=== PATIENT | male | born 1950 | race Caucasian/White ===

== ENCOUNTER 2018-03-01 07:29 | Outpatient (CLI) | payer MEDICARE, BC ==
--- NOTE | 2018-03-01 11:22 | PET ---
PET CT: HISTORY: 67-year-old male with colon cancer. Status post last chemotherapy on 02/19/18. Exam requested for res taging. TECHNIQUE: PET scanning with CT attenuation correction was performed from the base of the brain through the prox imal thighs following the intravenous administration of 11.2 mCi F18-FDG in the left antecubital mera a. Imaging was performed after an uptake interval of 48 minutes. COMPARISON: PET CT dated 01/17/17. CORRELATION: CT chest, abdomen, and pelvis dated 11/21/17 from [facility], [place], [place]. FINDINGS: There is diffusely increased osseous uptake in the axial and proximal peripheral skeleton consistent with bone marrow stimulation. No paulino hypermetabolism is seen in the neck, chest, axilla, abdomen, pelvis, or inguinal regions. No hypermetabolic pulmonary nodules, liver, or adrenal lesions are seen. There is physiologic activity in the GI and tracts, and the visualized portions of the brain. The CT scan used for attenuation correction demonstrates no evidence of pleural effusions or ascites. The 1.7 cm right adrenal adenoma is stable. There are changes of right hepatectomy and right hemicol ectomy. IMPRESSION: No evidence of metastatic disease. POS: [facility]
== END 2018-03-01 07:30 | disposition home or self-care (01) ==
LOC: PET 07:29
PROVIDERS: ATTEND Internal Medicine Hematology & Oncology
DX: C78.7 Secondary malignant neoplasm of liver and intrahepatic bile duct (principal); C18.2 Malignant neoplasm of ascending colon
CPT/HCPCS: 78815; A9552

== ENCOUNTER 2018-05-10 09:36 | Outpatient (CLI) | payer MEDICARE, BC ==
--- NOTE | 2018-05-10 13:54 | PET ---
NUCLEAR MEDICINE FDG PET CT: (Positron Emission Tomography) DATE: 05/10/18 HISTORY: 67-year-old male with colon cancer, C18.2 and C78.7. Restaging. COMPARISON: 03/01/18. TECHNIQUE: IV injection F-18 Fluorodeoxyglucose (FDG) dose: 11.8 mCi PET and attenuation-correction CT performed from skull base to proximal thighs. FINDINGS: SUV (standard uptake value) numbers given are QCLR maximum SUV's: Status post right hepatic lobectomy. Status post right hemicolectomy. There is diffusely increased bone uptake throughout the skeleton, as was the case previously. No evid ence of metastatic disease in the liver. No pathologically FDG-avid lesions in the neck, chest, abdom en, or pelvis. No major interval change. IMPRESSION: 1. diffusely increased bone uptake throughout the skeleton, unchanged. (is the patient on GCSF?) 2. Otherwise no evidence of metastatic disease. ELISEO Morris POS: [facility]
== END 2018-05-10 09:37 | disposition home or self-care (01) ==
LOC: PET 09:36
PROVIDERS: ATTEND Internal Medicine Hematology & Oncology
DX: C18.9 Malignant neoplasm of colon, unspecified (principal); C78.7 Secondary malignant neoplasm of liver and intrahepatic bile duct
CPT/HCPCS: 78815; A9552

== ENCOUNTER 2018-08-23 08:05 | Outpatient (CLI) | payer MEDICARE, BC ==
--- NOTE | 2018-08-23 11:10 | PET ---
PET CT: HISTORY: Colon cancer with history of liver metastasis. Restaging examination. COMPARISON: 05/10/18, 03/01/18, and CT of abdomen/pelvis dated 11/21/17. TECHNIQUE: A PET CT was performed from the skull base through the mid thigh after administration of 11.6 mCi F18 -FDG. FINDINGS: The patient is status post right hemicolectomy and removal of the right lobe of the liver. There is a MediPort with its tip in the superior vena cava. No suspicious areas of hypermetabolic activity are seen within the neck, chest, abdomen, or pelvis. T he previously seen osseous hypermetabolic activity has improved. No focal suspicious hypermetabolic l esions are seen in the skeleton. No focal liver lesions are seen in the left lobe of the liver. Atherosclerotic calcifications are see n in the aorta. No enlarged lymph nodes are seen in the retroperitoneum. IMPRESSION: No evidence of metastatic disease. POS: [facility]
== END 2018-08-23 08:06 | disposition home or self-care (01) ==
LOC: PET 08:05
PROVIDERS: ATTEND Internal Medicine Hematology & Oncology
DX: C18.9 Malignant neoplasm of colon, unspecified (principal); C78.7 Secondary malignant neoplasm of liver and intrahepatic bile duct
CPT/HCPCS: 78815; A9552

== ENCOUNTER 2018-11-15 07:31 | Outpatient (CLI) | payer MEDICARE, BC ==
--- NOTE | 2018-11-15 10:06 | PET ---
Nuclear medicine FDG PET/CT: (Positron emission tomography and computed tomography) DATE: 11/15/2018 HISTORY: 68-year-old male with colon cancer and history of liver metastasis. TECHNIQUE: IV injection of F-18 fluorodeoxyglucose (FDG) dose: 11.5 mCi PET scan and attenuation correction CT performed from skull base to proximal thighs. COMPARISON: 08/23/2018 FINDINGS: SUV (standard uptake values) numbers given are maximum SUVs. QCLR used. In the posterior aspect of the left lobe of the liver in hepatic segment 2-3 junction, there is a sma ll subtle focus of increased uptake with SUV of 4.7. Previously, it was 3.8. This is the focus of greatest focal uptake, but there is a large number of similar small foci of increased uptake througho ut the left lobe of the liver. For example, an area in the anterior segment 3 has SUV of 4.2. The right lobe of the liver is surgically absent. There has been right hemicolectomy. There are no ot her suspicious areas of abnormally increased uptake in the neck, chest, rest of the abdomen, or pelvis. IMPRESSION: 1.) A large number of small foci of increased uptake throughout the left lobe of the liver, apparentl y new since the previous study. It is possible that this just represents slightly heterogeneous, nodular uptake of the parenchyma, but multiple hepatic metastases are suspected. Further evaluation i s recommended, either with multiphase CT of the abdomen, liver mass protocol, with and without contrast, or multiphase MRI of the liver with and without contrast. 2) no evidence of metastatic disease outside of the liver.
== END 2018-11-15 07:32 | disposition home or self-care (01) ==
LOC: PET 07:31
PROVIDERS: ATTEND Internal Medicine Hematology & Oncology
DX: C18.9 Malignant neoplasm of colon, unspecified (principal); C78.7 Secondary malignant neoplasm of liver and intrahepatic bile duct
CPT/HCPCS: 78815; A9552

== ENCOUNTER 2018-12-20 07:16 | Outpatient (CLI) | payer MEDICARE, BC ==
[2018-12-20] MEDS ORDERED: Gadobenate Dimeglumine 529 MG/1 ML (20ML VIAL) ONE (09:00)
--- NOTE | 2018-12-20 10:46 | MRI ---
MRI ABDOMEN WITHOUT IV CONTRAST: HISTORY: Colon cancer with liver metastasis. Correlation: PET/CT of 11/15/2018. FINDINGS: There is an approximately 2 cm peripherally enhancing heterogeneous lesion in the posterior aspect of the left lobe of the liver corresponding to the hypermetabolic lesion on the PET scan, consistent with metastasis. No other liver lesions are abnormal biliary ductal dilatation are seen. The spleen, pancreas, adrenal glands and kidneys are normal. No ascites is seen. No lymphadenopathy i s noted. There is no evidence of aneurysmal dilatation of the abdominal aorta. Bone marrow signal is normal. IMPRESSION: Solitary 2 cm left liver lobe metastasis.
== END 2018-12-20 07:17 | disposition home or self-care (01) ==
LOC: SCSMRI 07:16
PROVIDERS: ATTEND Internal Medicine Hematology & Oncology
DX: C78.7 Secondary malignant neoplasm of liver and intrahepatic bile duct (principal); C18.9 Malignant neoplasm of colon, unspecified
CPT/HCPCS: 74183; 82565; A9577